=== PATIENT | female | born 2000 | race Caucasian/White ===

== ENCOUNTER 2020-06-09 18:58 | Emergency (ER) | payer OTHER ==
[~2020-06-09] VITALS: Ht 157.5 cm; Wt 54.9 kg
--- NOTE | 2020-06-09 21:04 | NUR ---
bibself c/o cough x 2 days. pt aox4 rr even and unlabored. no sob noted. no nvd at this time. no acute distress noted. pt waiting for md mead.
--- NOTE | 2020-06-09 21:43 | NUR ---
COVID SWAB COLLECTED. SENT TO LAB.
--- NOTE | 2020-06-09 21:53 | NUR ---
Patient discharged to home in stable condition. Written and verbal after care instructions given. Patient verbalizes understanding of instruction. ambulatory with a steady gait noted. pt aaox4 no acute distress noted, resp even and unlabored.
[2020-06-09 21:55] VITALS: BP 113/62
--- NOTE | 2020-06-11 05:13 | NUR ---
LAB CALLED REGARDING COVID (+) RESULT.
== END 2020-06-09 21:56 | disposition home or self-care (01) ==
LOC: ER 19:05
DX: U07.1 COVID-19 (principal); R51.9 Headache, unspecified; R43.8 Other disturbances of smell and taste
CPT/HCPCS: 99283; C9803; U0003